=== PATIENT | male | born 1945 | race Caucasian/White ===

== ENCOUNTER 2016-06-05 23:34 | Inpatient (IN) | payer OTHER ==
[~2016-06-05] VITALS: Ht 180.3 cm; Wt 113.0 kg
[2016-06-05] MEDS ORDERED: SODIUM CHLORIDE 0.9% 1000ML 1,000 ML IV STA (23:52)
[2016-06-05] MEDS ORDERED: ONDANSETRON INJ 2 MG/ML 2 ML VIAL IV STA (23:52)
[2016-06-05] MEDS ORDERED: MoRPHine SULFATE 10 MG/ML CARP/VIAL IV STA (23:52)
[2016-06-06 00:07] LABS: BASO % 0.3 %; BASO ABS # 0.03 K/uL (0-0.2); COMPLETE YES; EOS % 2.7 %; HEMATOCRIT 40.1 % (42-52); IG% 0.8 %; LYMPH % 28.9 %; LYMPH ABS # 3.45 K/uL (1.2-3.4); MEAN CELL VOLUME 84.6 fL (80-100); MEAN CORPUSCULAR HEMOGLOBIN 28.3 pg (25-34); MEAN CORPUSCULAR HGB CONC 33.4 g/dl (32-36); MEAN PLATELET VOLUME 10.2 fL (7.4-10.4); MONO % 8.5 %; NEUT % 58.8 %; PLATELET COUNT 310 K/uL (130-400); RED BLOOD COUNT 4.74 M/uL (4.7-6.1); WHITE BLOOD COUNT 11.94 K/uL (4.8-10.8)
[2016-06-06] MEDS ORDERED: CLOP1TAB15 PO (00:17)
[2016-06-06] MEDS ORDERED: ATOR80TA PO (00:18)
[2016-06-06] MEDS ORDERED: GLC/500 PO (00:19)
[2016-06-06] MEDS ORDERED: FOLI1TAB7 PO (00:19)
[2016-06-06] MEDS ORDERED: DUTA0.5C PO (00:19)
[2016-06-06] MEDS ORDERED: ASPI-428 PO (00:19)
[2016-06-06] MEDS ORDERED: PRT/20 PO (00:19)
[2016-06-06 00:23] LABS: CALCIUM 8.9 mg/dl (8.5-10.1); CREATININE 0.84 mg/dl (0.60-1.40); POTASSIUM 3.5 mmol/L (3.5-5.1)
[2016-06-06 00:25] LABS: ALB/GLOB RATIO 1.2 (0.9-2)
[2016-06-06] MEDS ORDERED: KETOROLAC TROMETHAMINE 30 MG/ML VIAL IV STA (00:32)
[2016-06-06] MEDS ORDERED: HYDROmorphone INJ 0.5 MG/0.5 ML SYR IV STA (00:52)
[2016-06-06 01:10] LABS: URINE APPEARANCE CLOUDY (CLEAR); URINE BILIRUBIN NEG (NEG); URINE COLOR ORANGE; URINE NITRITE NEG (NEG); UROBILINOGEN NEG (NEG); ZZUR CULT IF INDIC CLEAN CATCH NO
[2016-06-06 01:17] LABS: MANUAL MICROSCOPIC REQUIRED? NO; REVIEW REQ? NO
[2016-06-06] MEDS ORDERED: CIPROFLOXACIN 400MG / 200ML D5W IV STA (01:37)
[2016-06-06] MEDS ORDERED: DEXTROSE 50% 50 ML SYR IV PRN (01:45)
[2016-06-06] MEDS ORDERED: ONDANSETRON INJ 2 MG/ML 2 ML VIAL IV PRN (01:45)
[2016-06-06] MEDS ORDERED: GLUCOSE 10 TABS/TUBE PO PRN (01:45)
[2016-06-06] MEDS ORDERED: ACETAMINOPHEN 325 MG TAB PO PRN (01:45)
[2016-06-06] MEDS ORDERED: ZOLPIDEM TARTRATE 5 MG TAB PO PRN (01:45)
[2016-06-06] MEDS ORDERED: GLUCOSE 40% GEL 15 GM TUBE PO PRN (01:45)
[2016-06-06] MEDS ORDERED: HYDROmorphone INJ 0.5 MG/0.5 ML SYR IV PRN (01:45)
[2016-06-06] MEDS ORDERED: GLUCAGON FOR INJ 1 MG VIAL SQ PRN (01:45)
--- NOTE | 2016-06-06 01:57 | EMERGENCY ROOM VISIT NOTE ---
ED Visit Note First contact with patient: 23:45 I saw this patient in conjunction with Aria John PA-C. I agree with her decision making and treatment plan.
[2016-06-06] MEDS: HYDROmorphone INJ 1 MG/ML SYR IV PRN ×3 (02:09→08:44)
[2016-06-06 02:13] VITALS: O2SAT 93
[2016-06-06 02:50] VITALS: BP 131/68; TEMP 36.5; Ht 180.3 cm; Wt 113.0 kg
[2016-06-06] MEDS: NSS + 20MEQ KCL 1000ML 1,000 ML IV SCH ×2 (03:26→13:43)
[2016-06-06] MEDS: ACETAMINOPHEN IV 100 ML IV PRN ×2 (03:27→14:06)
[2016-06-06 05:39] VITALS: O2SAT 90
[2016-06-06 05:40] VITALS: O2SAT 95
--- NOTE | 2016-06-06 06:36 | History and Physical ---
History & Physical Date & Time of Service: Jun 06, 2016 at 06:25 Chief Complaint: Hydronephrosis Of Rt Kidney,Rt Ureteral Stone Primary Care Physician: Fer Santiago D.O. History of Present Illness Source: patient, friend The patient is a 71-year-old male who is in [place] for the [employer] football game tomorrow, who developed the acute onset of severe right-sided flank pain radiating down toward his right testicle. He has had 2 previous kidney stones on the left side that presented with flank pain, but has never had pain radiating toward his testicle on either side. He presents emergency department for assessment, is referred for evaluation for admission. Social History Smoking Status: Former Smoker Alcohol Use: socially Drug Use: none Marital Status: Housing status: lives with family Occupational Status: retired Multi-Drug Resistant Organisms History of MDRO: No Allergies Coded Allergies: No Known Allergies (Unverified , 06/06/16) Home Medications Scheduled Aspirin (Ecotrin Low Strength), 81 MG PO DAILY Atorvastatin Calcium (Lipitor), 1 TAB PO DAILY Clopidogrel (Plavix), 75 MG PO DAILY Dutasteride (Avodart), 0.5 MG PO DAILY Folic Acid (Folvite), 1 MG PO DAILY Metformin Hcl (Glucophage), 500 MG PO DAILY Pantoprazole (Protonix), 20 MG PO DAILY Review of Systems The patient denies chest pain, palpitations, shortness of breath, cough, lower extremity swelling, vision change, hearing change, sore throat, fevers, chills, sweats, weight change, fatigue, vomiting, blood in urine or stool, lightheadedness, dizziness, headache, memory loss, rash, abnormal bruising or bleeding, imbalance, focal or generalized weakness, numbness or tingling in arms or legs, arthralgias or myalgias, back or neck pain, night sweats, or allergy symptoms. The review of systems is otherwise negative other than for that already noted above, and at least 10 systems have been reviewed. Physical Exam Vital Signs Date Time Temp Pulse Resp B/P Pulse Ox O2 Delivery O2 Flow Rate FiO2 06/06/16 05:40 95 Nasal Cannula 2.0 06/06/16 05:39 90 Room Air 06/06/16 02:50 Nasal Cannula 2.0 06/06/16 02:50 36.5 131/68 Nasal Cannula 2.0 06/06/16 02:13 89 14 143/79 93 Nasal Cannula 2.0 06/06/16 00:48 76 18 146/83 90 Room Air 06/05/16 23:41 36.3 78 18 169/88 96 Room Air The patient is awake, well-developed and adequately nourished, alert and oriented 3, normocephalic and atraumatic, lying in bed and in mild to moderate distress secondary to right flank and right testicular pain. HEENT--PERRL, EOMI, mucous membranes and oropharynx dry. Neck--supple, no JVD or bruits, thyroid normal, trachea midline, no adenopathy. Heart--normal S1 and S2, no extra beats, no murmurs, rubs or gallops. Lungs--clear bilaterally with good air movement, no respiratory distress, no accessory muscle use. Abdomen--normal bowel sounds and soft, nontender and nondistended, no hernias or masses, no organomegaly, and obese. Extremities--no cyanosis, clubbing or edema. There are good distal pulses b/l. Dermatologic--normal skin turgor, normal color, warm and dry, no abnormal lymph nodes, no rash. Neurologic--cranial nerves II through XII grossly intact, motor and sensory examination normal. Rheumatologic--normal range of motion, nontender, muscles and joints. Psychiatric--normal affect. Diagnostics Laboratory Results Results Past 24 Hours Test 06/05/16 23:57 06/06/16 00:53 06/06/16 05:02 Range/Units White Blood Count 11.94 4.8-10.8 K/uL Red Blood Count 4.74 4.7-6.1 M/uL Hemoglobin 13.4 14.0-18.0 g/dL Hematocrit 40.1 42-52 % Mean Corpuscular Volume 84.6 80-100 fL Mean Corpuscular Hemoglobin 28.3 25-34 pg Mean Corpuscular Hemoglobin Concent 33.4 32-36 g/dl Platelet Count 310 130-400 K/uL Mean Platelet Volume 10.2 7.4-10.4 fL Neutrophils (%) (Auto) 58.8 % Lymphocytes (%) (Auto) 28.9 % Monocytes (%) (Auto) 8.5 % Eosinophils (%) (Auto) 2.7 % Basophils (%) (Auto) 0.3 % Neutrophils # (Auto) 7.02 1.4-6.5 K/uL Lymphocytes # (Auto) 3.45 1.2-3.4 K/uL Monocytes # (Auto) 1.02 0.11-0.59 K/uL Eosinophils # (Auto) 0.32 0-0.5 K/uL Basophils # (Auto) 0.03 0-0.2 K/uL RDW Standard Deviation 43.3 36.4-46.3 fL RDW Coefficient of Variation 14.0 11.5-14.5 % Immature Granulocyte % (Auto) 0.8 % Immature Granulocyte # (Auto) 0.10 0.00-0.02 K/uL Sodium Level 142 136-145 mmol/L Potassium Level 3.5 3.5-5.1 mmol/L Chloride Level 106 98-107 mmol/L Carbon Dioxide Level 28 21-32 mmol/L Anion Gap 8.0 3-11 mmol/L Blood Urea Nitrogen 11 7-18 mg/dl Creatinine 0.84 0.60-1.40 mg/dl Est Creatinine Clear Calc Drug Dose 104.6 ml/min Estimated GFR () 102.8 Estimated GFR (Non- 88.7 BUN/Creatinine Ratio 13.0 10-20 Random Glucose 186 70-99 mg/dl Calcium Level 8.9 8.5-10.1 mg/dl Total Bilirubin 0.2 0.2-1 mg/dl Aspartate Amino Transf (AST/SGOT) 11 15-37 U/L Alanine Aminotransferase (ALT/SGPT) 25 12-78 U/L Alkaline Phosphatase 72 45-117 U/L Total Protein 6.9 6.4-8.2 gm/dl Albumin 3.7 3.4-5.0 gm/dl Globulin 3.2 2.5-4.0 gm/dl Albumin/Globulin Ratio 1.2 0.9-2 Lipase 108 73-393 U/L Urine Color ORANGE Urine Appearance CLOUDY CLEAR Urine pH 5.0 4.5-7.5 Urine Specific [place] 1.020 1.000-1.030 Urine Protein 1+ NEG Urine Glucose (UA) 2+ NEG Urine Ketones 1+ NEG Urine Occult Blood 3+ NEG Urine Nitrite NEG NEG Urine Bilirubin NEG NEG Urine Urobilinogen NEG NEG Urine Leukocyte Esterase SMALL NEG Urine WBC (Auto) 5-10 0-5 /hpf Urine RBC (Auto) >30 0-4 /hpf Urine Hyaline Casts (Auto) 1-5 0-5 /lpf Urine Epithelial Cells (Auto) 10-20 0-5 /lpf Urine Bacteria (Auto) NEG NEG Diagnostic Radiology CT scan of the abdomen and pelvis shows a 4 mm distal right ureteral stone with mild right obstructive uropathy. EKG Has been ordered. Impression Assessment and Plan 4 mm distal right ureteral stone with mild right obstructive uropathy--the patient will be admitted to the medical surgical floor and kept nothing by mouth except medications. We'll place on normal saline with potassium chloride 20 mEq at 100 mils per hour, Dilaudid 0.5-1 mg IV every 2 hours when necessary, Zofran 4 mg IV every 6 hours when necessary, Protonix 40 mg IV daily, and Cipro 400 mg IV every 12 hours. We'll consult urology to see patient in the a.m. CAD/hypertension/coronary artery stent 1 in 2005--for now we will hold aspirin 81 mg by mouth daily and Plavix 75 mg by mouth daily. Diabetes mellitus--was just recently started on metformin 2 weeks ago. We'll hold metformin, place on Accu-Cheks before meals and at bedtime/or 4 times a day , with NovoLog coverage her scale. GERD--change pantoprazole 20 mg by mouth daily to 40 mg IV daily. Hypercholesterolemia--hold atorvastatin. BPH--hold Avodart. His medications can be resumed if urology decides that no procedure will be performed. He does have a urologist in [place], [place]. Level of Care Med/Surg Advanced Directives Existing Advance Directive: No Existing Living Will: Yes Existing Power of Histotechnologist: Yes Resuscitation Status FULL RESUSCITATION VTE Prophylaxis VTE Risk Assessment Done? Y/N: Yes Risk Level: Moderate Given or contraindicated: SCD's
--- NOTE | 2016-06-06 06:53 | DIAGNOSTIC IMAGING REPORT ---
CT SCAN OF THE ABDOMEN AND PELVIS WITHOUT CONTRAST CLINICAL HISTORY: Right flank pain COMPARISON STUDY: No previous studies for comparison. TECHNIQUE: CT scan of the abdomen and pelvis was performed from the lung bases to the proximal femurs. Images are reviewed in the axial, sagittal, and coronal planes. IV contrast was not administered for this examination. CT DOSE: 1925.10 mGy.cm FINDINGS: Lower chest: There are mild basilar atelectatic changes. Liver: The unenhanced liver is normal in size, contour, and attenuation. There is no intrahepatic biliary ductal dilatation. Gallbladder: Unremarkable. Spleen: Normal in size and attenuation. Pancreas: Unremarkable. Adrenal glands: Unremarkable. Kidneys: There is a 5 mm lower pole left renal calculus. There is a 5 mm mid pole right renal calculus. There are punctate upper pole right renal calculi. There is right-sided hydronephrosis. There is obstructing 5 mm distal right ureteral calculus at the inferior S3 level Bowel: There are no transition zones indicate bowel obstruction. There is colonic diverticulosis. There are no acute peridiverticular inflammatory changes. The appendix appears normal. Peritoneum: There is no intraperitoneal free air or abdominal ascites. There are fat-containing inguinal hernias right larger than left Vasculature: The abdominal aorta is normal in course and caliber. Adenopathy: None. Pelvic viscera: The bladder, and pelvic viscera are unremarkable. Skeletal structures: No destructive osseous lesions are seen. IMPRESSION: 1. Bilateral nephrolithiasis 2. Obstructing 5 mm distal right ureteral calculus 3. Normal appendix 4. Diverticulosis. No evidence of acute diverticulitis 5. No evidence of bowel obstruction. No evidence of free air. Electronically signed by: Benito Mrieles M.D. 06/06/2016 6:51 AM Dictated Date/Time: 06/06/2016 6:47 AM
[2016-06-06] MEDS ORDERED: INSULIN ASPART 100 UNITS/ML 3 ML PEN SC SCH ×3 (07:00→12:00)
[2016-06-06] MEDS ORDERED: NURSING VERBAL MED ORDER ONE ×2 (07:15→10:30)
--- NOTE | 2016-06-06 07:16 | EMERGENCY ROOM VISIT NOTE ---
History First contact with patient: 23:45 Chief Complaint: FLANK PAIN Stated Complaint: HYDRONEPHROSIS OF RT KIDNEY,RT URETERAL STONE History of Present Illness The patient is a 71 year old male who presents to the Emergency Room with complaints of right flank pain with radiation into the right testicle. He states that the pain began suddenly approximately 2 hours ago. The pain starts in the right flank and radiates into the right lower abdomen and right testicle. It has been gradually worsening. He states it is constant. He rates the discomfort a 10/10. He does state he noticed blood in his urine. The patient has a history of kidney stones and states that he sees a urologist in his hometown in [place]. He denies any other urinary symptoms, changes in bowel movements or vomiting. He denies any fevers/chills or recent illnesses. Review of Systems A complete 10-point Review of Systems was discussed with the patient, with pertinent positives and negatives listed in the History of Present Illness. All remaining Review of Systems questions can be considered negative unless otherwise specified. Past Medical/Surgical History Medical Problems: (1) Hydronephrosis of right kidney (2) Right ureteral stone Social History Smoking Status: Former Smoker Drug Use: none Marital Status: Occupation Status: retired Current/Historical Medications Scheduled Aspirin (Ecotrin Low Strength), 81 MG PO DAILY Atorvastatin Calcium (Lipitor), 1 TAB PO DAILY Clopidogrel (Plavix), 75 MG PO DAILY Dutasteride (Avodart), 0.5 MG PO DAILY Folic Acid (Folvite), 1 MG PO DAILY Metformin Hcl (Glucophage), 500 MG PO DAILY Pantoprazole (Protonix), 20 MG PO DAILY Allergies Coded Allergies: No Known Allergies (Unverified , 06/06/16) Physical Exam Vital Signs Date Time Temp Pulse Resp B/P Pulse Ox O2 Delivery O2 Flow Rate FiO2 06/06/16 00:48 76 18 146/83 90 Room Air 06/05/16 23:41 36.3 78 18 169/88 96 Room Air Pain Rating (0-10): 7.0 Physical Exam VITALS: Vitals are noted on the nurse's note and reviewed by myself. Vital signs stable. GENERAL: This is a 71-year-old male, who appears to be in pain, nondiaphoretic, well-developed well-nourished. SKIN: Capillary reflex less than 2 seconds. HEENT: Normocephalic. PERRLA. EOMI. Nares patent. Mucous membranes moist. Neck is supple without nuchal rigidity. HEART: Regular rate and rhythm without murmurs gallops or rubs. LUNGS: Clear to auscultation bilaterally without wheezes, rales or rhonchi. ABDOMEN: Soft, mild tenderness over the right lower quadrant. No guarding or rebound tenderness. MUSCULOSKELETAL: Positive right CVA tenderness. NEURO: Patient was alert and oriented to person place and time. Medical Decision & Procedures ER Provider Diagnostic Interpretation: CT ABDOMEN & PELVIS: 4 mm obstructing calculus is present within the distal right ureter resulting in mild right obstructive uropathy. Nonobstructing bilateral intrarenal calculi are demonstrated measuring up to 6 mm on the right and 5 mm on the left. Urinary bladder is incompletely distended. No free intraperitoneal air or fluid. Solid organs otherwise unremarkable in this noncontrast examination. Colonic diverticulosis without evidence of diverticulitis. Appendix is within normal limits. No bowel obstruction. Radiologist: Raúl Helms MD Laboratory Results 06/05/16 23:57 Red Blood Count 4.74, Mean Corpuscular Volume 84.6, Mean Corpuscular Hemoglobin 28.3, Mean Corpuscular Hemoglobin Concent 33.4, Mean Platelet Volume 10.2, Neutrophils (%) (Auto) 58.8, Lymphocytes (%) (Auto) 28.9, Monocytes (%) (Auto) 8.5, Eosinophils (%) (Auto) 2.7, Basophils (%) (Auto) 0.3, Neutrophils # (Auto) 7.02, Lymphocytes # (Auto) 3.45, Monocytes # (Auto) 1.02, Eosinophils # (Auto) 0.32, Basophils # (Auto) 0.03 06/05/16 23:57 Test 06/05/16 23:57 06/06/16 00:53 White Blood Count 11.94 K/uL (4.8-10.8) Red Blood Count 4.74 M/uL (4.7-6.1) Hemoglobin 13.4 g/dL (14.0-18.0) Hematocrit 40.1 % (42-52) Mean Corpuscular Volume 84.6 fL (80-100) Mean Corpuscular Hemoglobin 28.3 pg (25-34) Mean Corpuscular Hemoglobin Concent 33.4 g/dl (32-36) Platelet Count 310 K/uL (130-400) Mean Platelet Volume 10.2 fL (7.4-10.4) Neutrophils (%) (Auto) 58.8 % Lymphocytes (%) (Auto) 28.9 % Monocytes (%) (Auto) 8.5 % Eosinophils (%) (Auto) 2.7 % Basophils (%) (Auto) 0.3 % Neutrophils # (Auto) 7.02 K/uL (1.4-6.5) Lymphocytes # (Auto) 3.45 K/uL (1.2-3.4) Monocytes # (Auto) 1.02 K/uL (0.11-0.59) Eosinophils # (Auto) 0.32 K/uL (0-0.5) Basophils # (Auto) 0.03 K/uL (0-0.2) RDW Standard Deviation 43.3 fL (36.4-46.3) RDW Coefficient of Variation 14.0 % (11.5-14.5) Immature Granulocyte % (Auto) 0.8 % Immature Granulocyte # (Auto) 0.10 K/uL (0.00-0.02) Anion Gap 8.0 mmol/L (3-11) Est Creatinine Clear Calc Drug Dose 104.6 ml/min Estimated GFR () 102.8 Estimated GFR (Non- 88.7 BUN/Creatinine Ratio 13.0 (10-20) Calcium Level 8.9 mg/dl (8.5-10.1) Total Bilirubin 0.2 mg/dl (0.2-1) Aspartate Amino Transf (AST/SGOT) 11 U/L (15-37) Alanine Aminotransferase (ALT/SGPT) 25 U/L (12-78) Alkaline Phosphatase 72 U/L (45-117) Total Protein 6.9 gm/dl (6.4-8.2) Albumin 3.7 gm/dl (3.4-5.0) Globulin 3.2 gm/dl (2.5-4.0) Albumin/Globulin Ratio 1.2 (0.9-2) Lipase 108 U/L (73-393) Urine Color ORANGE Urine Appearance CLOUDY (CLEAR) Urine pH 5.0 (4.5-7.5) Urine Specific [place] 1.020 (1.000-1.030) Urine Protein 1+ (NEG) Urine Glucose (UA) 2+ (NEG) Urine Ketones 1+ (NEG) Urine Occult Blood 3+ (NEG) Urine Nitrite NEG (NEG) Urine Bilirubin NEG (NEG) Urine Urobilinogen NEG (NEG) Urine Leukocyte Esterase SMALL (NEG) Urine WBC (Auto) 5-10 /hpf (0-5) Urine RBC (Auto) >30 /hpf (0-4) Urine Hyaline Casts (Auto) 1-5 /lpf (0-5) Urine Epithelial Cells (Auto) 10-20 /lpf (0-5) Urine Bacteria (Auto) NEG (NEG) Medications Administered Medications (Trade) Dose Ordered Sig/Lucio Route Start Time Stop Time Status Last Admin Dose Admin Sodium Chloride (Nss 1000ml) 1,000 ml @ 999 mls/hr Q1H1M STAT IV 06/05/16 23:52 06/06/16 00:52 DC 06/06/16 00:13 999 MLS/HR Morphine Sulfate (MoRPHine SULFATE INJ) 8 mg NOW STAT IV 06/05/16 23:52 06/05/16 23:54 DC 06/06/16 00:14 8 MG Ondansetron HCl (Zofran Inj) 4 mg NOW STAT IV 06/05/16 23:52 06/05/16 23:54 DC 06/06/16 00:14 4 MG Hydromorphone HCl (Dilaudid Inj) 0.5 mg NOW STAT IV 06/06/16 00:52 06/06/16 00:53 DC 06/06/16 00:56 0.5 MG Ciprofloxacin/ Dextrose (Cipro / D5w) 400 mg NOW STAT IV 06/06/16 01:37 06/06/16 01:42 DC 06/06/16 02:09 400 MG ED Course The patient was evaluated as above. Labs were drawn and IV access was obtained. Patient was medicated with 8 mg morphine, 4 mg Zofran and 1 L normal saline solution. CT scan was performed and read by radiology as above. Patient was reevaluated and had continued pain. He was given 0.5 mg Dilaudid. Patient was reevaluated and findings were discussed. He had continued pain and preferred to be treated as an inpatient for pain control. Case was discussed with the [facility] hospitalist, Dr. South. They agreed to evaluate the patient for admission. Medical Decision Differential diagnosis includes renal calculus, pyelonephritis, musculoskeletal pain, diverticulitis, appendicitis, among others. The patient is a 71-year-old male who presents today complaining of right flank pain. Labs revealed and mild leukocytosis. No concerning anemia or electrolyte abnormality. Urinalysis was not suggestive of infection. CT scan showed an obstructing right ureteral stone. Patient did not have adequate pain control despite multiple doses of IV narcotics. He was given the option of being treated as an inpatient versus outpatient treatment and he preferred to be admitted for pain control. The patient was independently evaluated by Dr. Rahman, ED attending physician, who agreed with my assessment and treatment plan. Case was discussed with the hospitalist, who agreed to evaluate the patient for admission. Impression Primary Impression: Right ureteral stone Departure Information Dispostion Still a Patient Condition FAIR Referrals NOBLE GARCIA D.O. (PCP) Forms HOME CARE DOCUMENTATION FORM, IMPORTANT VISIT INFORMATION Patient Instructions [facility]
[2016-06-06 07:31] VITALS: BP 93/52; PULSE 67; TEMP 36.5; O2SAT 95
--- NOTE | 2016-06-06 10:17 | Urology Consultation ---
History General Date of Service: Jun 06, 2016. Primary Care Physician: Fer Santiago D.O. Pt seen a urologist before?: Yes If yes, why?: nephrolithiasis History of Present Illness Patient's a 71-year-old white male with a history of nephrolithiasis who is visiting [facility] [employer] Last night he developed right flank pain which radiated down into the right testicle. He denied any fevers or chills. Pain at times was severe. He came to the emergency room where a CT scan showed I lateral renal calculi and a 4 mm distal right ureteral calculus with proximal hydroureteronephrosis. He is currently being treated with pain medication and IV fluids. He says currently he is not having any pain. He has no nausea vomiting fevers or chills. Laboratory Last Vital Signs Documentation Date Time Temp Pulse Resp B/P Pulse Ox O2 Delivery O2 Flow Rate FiO2 06/06/16 07:31 36.5 67 20 93/52 95 Room Air 2.0 Last 24 Hours Test 06/05/16 23:57 06/06/16 00:53 06/06/16 05:02 06/06/16 08:55 White Blood Count 11.94 K/uL Red Blood Count 4.74 M/uL Hemoglobin 13.4 g/dL Hematocrit 40.1 % Mean Corpuscular Volume 84.6 fL Mean Corpuscular Hemoglobin 28.3 pg Mean Corpuscular Hemoglobin Concent 33.4 g/dl Platelet Count 310 K/uL Mean Platelet Volume 10.2 fL Neutrophils (%) (Auto) 58.8 % Lymphocytes (%) (Auto) 28.9 % Monocytes (%) (Auto) 8.5 % Eosinophils (%) (Auto) 2.7 % Basophils (%) (Auto) 0.3 % Neutrophils # (Auto) 7.02 K/uL Lymphocytes # (Auto) 3.45 K/uL Monocytes # (Auto) 1.02 K/uL Eosinophils # (Auto) 0.32 K/uL Basophils # (Auto) 0.03 K/uL RDW Standard Deviation 43.3 fL RDW Coefficient of Variation 14.0 % Immature Granulocyte % (Auto) 0.8 % Immature Granulocyte # (Auto) 0.10 K/uL Sodium Level 142 mmol/L Potassium Level 3.5 mmol/L Chloride Level 106 mmol/L Carbon Dioxide Level 28 mmol/L Anion Gap 8.0 mmol/L Blood Urea Nitrogen 11 mg/dl Creatinine 0.84 mg/dl Est Creatinine Clear Calc Drug Dose 104.6 ml/min Estimated GFR () 102.8 Estimated GFR (Non- 88.7 BUN/Creatinine Ratio 13.0 Random Glucose 186 mg/dl Calcium Level 8.9 mg/dl Total Bilirubin 0.2 mg/dl Aspartate Amino Transf (AST/SGOT) 11 U/L Alanine Aminotransferase (ALT/SGPT) 25 U/L Alkaline Phosphatase 72 U/L Total Protein 6.9 gm/dl Albumin 3.7 gm/dl Globulin 3.2 gm/dl Albumin/Globulin Ratio 1.2 Lipase 108 U/L Urine Color ORANGE Urine Appearance CLOUDY Urine pH 5.0 Urine Specific [place] 1.020 Urine Protein 1+ Urine Glucose (UA) 2+ Urine Ketones 1+ Urine Occult Blood 3+ Urine Nitrite NEG Urine Bilirubin NEG Urine Urobilinogen NEG Urine Leukocyte Esterase SMALL Urine WBC (Auto) 5-10 /hpf Urine RBC (Auto) >30 /hpf Urine Hyaline Casts (Auto) 1-5 /lpf Urine Epithelial Cells (Auto) 10-20 /lpf Urine Bacteria (Auto) NEG Bedside Glucose 192 mg/dl Social History Hx Tobacco Use In Past Year?: No Marital status: Housing status: lives with family Occupation status: retired History of MDRO No Allergies Coded Allergies: No Known Allergies (Unverified , 06/06/16) Medications Home Medications: Home Meds and Scripts Medications Dose Route/Sig Max Daily Dose Days Date Category Glucophage (Metformin Hcl) 500 Mg Tab 500 Mg PO DAILY 06/06/16 Reported Protonix (Pantoprazole Sodium) 20 Mg Tab 20 Mg PO DAILY 06/06/16 Reported Avodart (Dutasteride) 0.5 Mg Cap 0.5 Mg PO DAILY 06/06/16 Reported Folvite (Folic Acid) 1 Mg Tab 1 Mg PO DAILY 06/06/16 Reported Ecotrin Low Strength (Aspirin) 81 Mg Tab 81 Mg PO DAILY 06/06/16 Reported Lipitor (Atorvastatin Calcium) Unknown Strength Tab 1 Tab PO DAILY 06/06/16 Reported Plavix (Clopidogrel Bisulfate) 75 Mg Tab 75 Mg PO DAILY 06/06/16 Reported Inpatient Medications: Current Inpatient Medications Medications (Trade) Dose Ordered Sig/Lucio Route Start Time Stop Time Status Last Admin Dose Admin Acetaminophen (Tylenol Tab) 650 mg Q4H PRN PO 06/06/16 01:45 07/06/16 01:44 Zolpidem Tartrate 5 mg 5 mg HSZ PRN PO 06/06/16 01:45 07/06/16 01:44 Pantoprazole Sodium 40 mg/ Syringe 10 ml @ 5 mls/min DAILY@11 IV 06/06/16 11:00 07/06/16 10:59 Ciprofloxacin/ Dextrose/Prmx (Cipro / D5w/ Premixed D5W) 200 ml @ 100 mls/hr Q12H IV 06/06/16 14:00 06/16/16 13:59 Ondansetron HCl 4 mg 4 mg Q6H PRN IV 06/06/16 01:45 07/06/16 01:44 Acetaminophen (Ofirmev Iv) 100 ml @ 400 mls/hr Q8H PRN IV 06/06/16 01:45 07/06/16 01:44 06/06/16 03:27 400 MLS/HR Glucose (Glucose 40% Gel) UD PRN PO 06/06/16 01:45 07/06/16 01:44 Glucose (Glucose Chew Tab) 1 tabs UD PRN PO 06/06/16 01:45 07/06/16 01:44 Dextrose (Dextrose 50% 50ML Syringe) 50 ml UD PRN IV 06/06/16 01:45 07/06/16 01:44 Glucagon (Glucagon Inj) 1 mg UD PRN SQ 06/06/16 01:45 07/06/16 01:44 Hydromorphone HCl (Dilaudid Inj) 1 mg Q2H PRN IV 06/06/16 01:45 06/20/16 01:44 06/06/16 08:44 1 MG Hydromorphone HCl 0.5 mg 0.5 mg Q2H PRN IV 06/06/16 01:45 06/20/16 01:44 Potassium Chloride/Sodium Chloride (Nss + 20meq KCl 1000ml) 1,000 ml @ 100 mls/hr Q10H IV 06/06/16 03:00 07/06/16 02:59 06/06/16 03:26 100 MLS/HR Insulin Aspart (novoLOG ASPART) SLIDING SCALE If C... Q6 SC 06/06/16 12:00 07/06/16 11:59 Review of Systems Review of Systems Additional Comments: Review of systems were reviewed from his admitting and emergency room history and physical Physical Exam Vital Signs: Vital Signs Past 12 Hours Date Time Temp Pulse Resp B/P Pulse Ox O2 Delivery O2 Flow Rate FiO2 06/06/16 07:31 36.5 67 20 93/52 95 Room Air 2.0 06/06/16 05:40 95 Nasal Cannula 2.0 06/06/16 05:39 90 Room Air 06/06/16 02:50 Nasal Cannula 2.0 06/06/16 02:50 36.5 131/68 Nasal Cannula 2.0 06/06/16 02:13 89 14 143/79 93 Nasal Cannula 2.0 06/06/16 00:48 76 18 146/83 90 Room Air 06/05/16 23:41 36.3 78 18 169/88 96 Room Air Physical Exam: General Appearance: WD/WN, no apparent distress Eyes: bilateral eyes normal inspection ENT: hearing grossly normal Neck: no adenopathy Respiratory/Chest: lungs clear, normal breath sounds, no respiratory distress Cardiovascular: regular rate, rhythm Gastrointestinal: Abdomen: normal abdomen Skin: normal color Assessment & Plan Assessment & Plan Impression Renal colic secondary to a distal right ureteral stone 4 mm I reviewed the patient's CT We discussed options including trial of passage with medical expulsive therapy Cystoscopy with stent placement Cystoscopy with possible ureteroscopy laser lithotripsy and stent placement Patient does have a urologist in his hometown At this point since she is pain-free he said he would like to try to pass the stone on his own I will put him on Flomax I would also continue his IV fluid and pain medication if he is feeling okay he can be probably be discharged home either tonight or tomorrow morning along with some pain medication until he gets back to his hometown if he develops a fever or shaking chills he would need emergent stent
[2016-06-06] MEDS ORDERED: PANTOprazole INJ 40 MG in SYRINGE 0 ML IV SCH (11:00)
[2016-06-06] MEDS ORDERED: CIPROFLOXACIN 250 MG TAB PO ONE (14:00)
[2016-06-06] MEDS ORDERED: CIPROFLOXACIN / D5W 400 MG in PREMIXED IN D5W 200 ML IV SCH (14:00)
[2016-06-06] MEDS ORDERED: RXC5 PO (14:03)
[2016-06-06] MEDS ORDERED: CIPR250T5 PO (14:03)
--- NOTE | 2016-06-06 14:09 | Discharge Instructions ---
Discharge Instructions Date of Service Jun 06, 2016. Admission Reason for Admission: Hydronephrosis Of Rt Kidney,Rt Ureteral Stone Discharge Discharge Diagnosis / Problem: right ureter nepholithiasis Discharge Goals Goal(s): Improve function, Improve disease control Activity Recommendations Activity Limitations: per Instructions/Follow-up section Driving or Machine Use: no limitations . Instructions / Follow-Up Instructions / Follow-Up Follow up with primary Urologist on return home call for appointment Current Hospital Diet Patient's current hospital diet: Diabetes Type 2 Diet Discharge Diet Recommended Diet: Regular Diet Pending Studies Studies pending at discharge: no Medical Emergencies . Who to Call and When: Medical Emergencies: If at any time you feel your situation is an emergency, please call 911 immediately. . Non-Emergent Contact Non-Emergency issues call your: Primary Care Provider . Past History Medical & Surgical History: (1) Hydronephrosis of right kidney (2) Right ureteral stone . "Provider Documentation" section prepared by Anthony Hawkins. . VTE Core Measure Inpt VTE Proph given/why not?: SCD's
[2016-06-06 14:16] VITALS: BP 93/52; PULSE 67; TEMP 36.5; O2SAT 95
[2016-06-06] MEDS ORDERED: CIPROFLOXACIN 250 MG TAB PO SCH (21:00)
[2016-06-07] MEDS ORDERED: TAMSULOSIN HCL 0.4 MG CAP PO SCH (09:00)
--- NOTE | 2016-06-09 19:46 | DISCHARGE SUMMARY ---
Please see dictated H\T\P for full details of his presentation. The patient is a 71-year-old gentleman with history of nephrolithiasis. He was in town to see the [employer]. He came in complaining of right-sided flank pain radiating down to his right testicle. He denied fevers or chills. Pain was severe and CAT scan in the Emergency Room showed a renal calculi on the left and also a 4 mm distal right ureteral calculus with proximal hydroureteronephrosis. He received IV Tylenol for pain which worked well for him. Urology was consulted and they felt that he could follow up with his own urologist as an outpatient. He was on ciprofloxacin and this was converted to oral, and he was given IV Tylenol prior to discharge and instructed to call his urologist for further treatment when he returns to his home. If the stone does not pass, options of cystoscopy with stent placement, cystoscopy with ureteroscopy, laser lithotripsy and stent placement were discussed and patient was most comfortable with following up with his own urologist. He was placed on Flomax and IV fluids and was discharged that same day. The above was discussed with patient and his and they were given a copy of his CAT scan to take on disc. Time spent in review of the chart, discussion with patient on the date of discharge is 31 minutes. SABRINA
== END 2016-06-06 14:46 | disposition home or self-care (01) | DRG 694 ==
LOC: ENRESERVDT → ENRESERVTM → C.EDB 23:36 → C.3E 06-06 01:44
PROVIDERS: ADMIT Hospitalist; ATTEND Internal Medicine
DX: N13.2 Hydronephrosis with renal and ureteral calculous obstruction (principal); I25.10 Atherosclerotic heart disease of native coronary artery without angina pectoris; E11.9 Type 2 diabetes mellitus without complications; K21.9 Gastro-esophageal reflux disease without esophagitis; N40.0 Benign prostatic hyperplasia without lower urinary tract symptoms; Z87.891 Personal history of nicotine dependence; Z95.5 Presence of coronary angioplasty implant and graft